=== PATIENT | male | born 1995 | race Hispanic/Latino ===

== ENCOUNTER 2017-12-01 19:50 | Emergency (ER) | payer BC | END 2017-12-01 20:45 | disposition home or self-care (01) | LOC: EDH 19:50 | DX: B00.89 Other herpesviral infection (principal); F90.9 Attention-deficit hyperactivity disorder, unspecified type; Z72.0 Tobacco use; Z88.8 Allergy status to other drugs, medicaments and biological substances; Z91.030 Bee allergy status ==

== ENCOUNTER 2023-02-23 17:26 | Emergency (ER) | payer BC, OTHER ==
[~2023-02-23] VITALS: Ht 167.6 cm; Wt 49.9 kg
[2023-02-23 17:38] VITALS: BP 130/89; PULSE 60; RESP 18; O2SAT 100
[2023-02-23] MEDS ORDERED: TETANUS/DIPHTHERIA TOXOID [ADULT] 0.5 ML VIAL IM ONE (18:00)
== END 2023-02-23 18:38 | disposition home or self-care (01) ==
LOC: EDH 17:26
DX: S61.012A Laceration without foreign body of left thumb without damage to nail, initial encounter (principal); W45.8XXA Other foreign body or object entering through skin, initial encounter; Y93.89 Activity, other specified; Y92.89 Other specified places as the place of occurrence of the external cause; Y99.8 Other external cause status
CPT/HCPCS: 73140; 90471; 90714